=== PATIENT | male | born 1930 | race Caucasian/White ===

== ENCOUNTER → 2017-03-17 | Outpatient (CLI) | payer MEDICARE ==
[~2017-03-17] MED LIST: ADVAIR 500/501 E1 INH; ALLOPURINOL100 MG PO; ASPIRIN81 M1 PO; CALCARB 600 W/V1 TA1 PO; CARDURA4 MG PO; COREG6.25 MG PO; EPA1000 MG PO; GLYBURIDE5 MG PO; HUMULIN N100 U/ML SC; HYDRALAZINE10 MG PO; IMDUR30 MG PO; LASIX40 MG PO; MEDROL DOSEPAK4 MG PO; METFORMIN500 MG PO; PERCOCET 325 MG1 TA2 PO; PLAVIX75 MG PO; POTASSIUM20 MEQ PO; SPIRIVA18 MCG INH; VITAMIN B12 PO
[2017-03-17 14:22] LABS: BASO % 0.3 % (0.0-1.0); EOS # 0.3 10*3/uL (0.0-0.4); EOS % 9.8 % (1.0-4.0); HEMATOCRIT 33.1 % (42.0-52.0); LYMPH % 27.5 % (27.0-41.0); MEAN CELL VOLUME 102.8 fl (80.0-94.0); MEAN CORPUSCULAR HGB 31.1 pg (27.0-31.0); MEAN CORPUSCULAR HGB CONC 30.2 g/dl (33.0-37.0); MEAN PLATELET VOLUME 11.4 fl (9.6-12.3); MONO # 0.3 10*3/uL (0.1-1.0); MONO % 9.8 % (3.0-9.0); NEUT # 1.8 10*3/uL (2.3-7.9); NEUT % 52.3 % (47.0-73.0); PLATELET COUNT AUTOMATED 56 10*3/uL (130-400); RED BLOOD COUNT 3.22 10*6/uL (4.50-5.90); RED CELL DISTRI WIDTH 12.7 % (0-14.5); WHITE BLOOD COUNT 3.5 10*3/uL (4.8-10.8)
[2017-03-17 14:28] LABS: BILIRUBIN NEGATIVE (NEGATIVE); BLOOD TRACE-INTACT (NEGATIVE); CLARITY CLEAR (CLEAR); COLOR YELLOW (YELLOW); GLUCOSE TRACE (NEGATIVE); KETONE NEGATIVE (NEGATIVE); LEUKO ESTERASE NEGATIVE (NEGATIVE); NITRITE NEGATIVE (NEGATIVE); PROTEIN 1+ (NEGATIVE); UROBILINOGEN 0.2 E.U./dl (0.2-1.0)
[2017-03-17 14:37] LABS: URINE TP/CRE RATIO 0.6 (<0.21)
[2017-03-17 14:46] LABS: ALBUMIN 3.8 gm/dl (3.1-4.5); MAGNESIUM 2.3 mg/dL (1.5-2.1); POTASSIUM 4.3 mmol/L (3.5-5.1)
[2017-03-17 16:28] LABS: VITAMIN D, 25-HYDROXY 34.4 ng/mL (30-100)
== END | disposition home or self-care (01) ==
LOC: LAB 13:41
PROVIDERS: Internal Medicine Nephrology
DX: N18.4 Chronic kidney disease, stage 4 (severe) (principal); N25.81 Secondary hyperparathyroidism of renal origin; D63.1 Anemia in chronic kidney disease

== ENCOUNTER 2017-04-05 11:11 | Inpatient (IN) | payer MEDICARE ==
[~2017-04-05] VITALS: Ht 180.3 cm; Wt 87.1 kg
--- NOTE | ~2017-04-05 | PR ---
[place], [place] PROGRESS NOTE NAME: DONA ADLER [facility] #: [id number] UNIT #: [id number] ROOM: 421 DOCTOR: DIOR WALLACE MD BIRTHDATE: [birth year] DOS: 04/13/2017 CARDIOLOGY PROGRESS NOTE SUBJECTIVE: The patient was seen at his bedside today 04/13/2017 for followup of his atherosclerotic heart disease and recent non-ST elevation myocardial infarction. He is an 87-year-old man who has multiple medical problems including chronic systolic heart failure from ischemic cardiomyopathy, hypertension, hyperlipidemia, COPD, hypothyroidism and dementia. He presented to the hospital on this occasion with increased weakness and confusion. Cardiac biomarkers were consistent with a non-ST elevation myocardial infarction, even though the patient had no chest pain. He did show evidence for acute renal injury. Because of his multiple comorbidities and acute renal failure, it was felt that he was best treated medically. He states that his breathing has improved. He denies any chest pain, palpitations, lightheadedness or syncope at this time. He states that he has not been out of bed much, but does well, sitting up. PHYSICAL EXAMINATION: VITAL SIGNS: Today, his pulse is 69 and regular, blood pressure is 112/50. He is afebrile. NECK: Supple. He has no jugular distention. Carotids are full. LUNGS: Respirations are unlabored. Chest is clear to auscultation and percussion. He had no presacral edema. HEART: Had a regular rhythm with a fourth heart sound and a soft third heart sound. The PMI is displaced laterally. ABDOMEN: Soft and normally active. EXTREMITIES: Showed no edema today. LABORATORY DATA: Hemoglobin is 9.1, white count 7400, platelet count 82,000. Sodium 148, potassium 3.7, BUN 48 with creatinine 4.07. IMPRESSION: 1. Non-ST elevation myocardial infarction. 2. Ischemic cardiomyopathy. 3. Acute on chronic systolic congestive heart failure. 4. Essential hypertension, which is currently well controlled. 5. Chronic renal failure with acute exacerbation. 6. Hematuria. 7. Anemia. 8. Dementia. PLAN: The patient is tolerating hydralazine and his blood pressure is now controlled. We will not make any adjustments in his medications today. I agree with withholding his diuretics for a day or two until his renal functions improved, but I think that long-term, he will require loop diuretic therapy on daily or every other day basis. We will continue to follow him with his other physicians and we thank Dr. Bhatia for asking our advice regarding his care. [place], [place] PROGRESS NOTE NAME: DNOA ADLER UNIT #: [id number] ROOM: [facility] DOCTOR: DIOR WALLACE MD BIRTHDATE: [birth year] DIOR WALLACE MD CM:PNTRANS [id number] DIOR WALLACE MD 04/14/17 0538 interface
--- NOTE | ~2017-04-05 | PR ---
[place], [place] PROGRESS NOTE NAME: DONA ADLER UNIT #: [id number] ROOM: 421 DOCTOR: SERGIO PABLO MD BIRTHDATE: [birth year] DOS: 04/11/2017 REASON FOR VISIT: NSTEMI and cardiomyopathy. SUBJECTIVE: The patient is more alert today. Denies any chest pain or shortness of breath. No orthopnea. No fever or chills. REVIEW OF SYSTEMS: The 8 systems negative except as mentioned above. RHYTHM STRIPS: The patient was ventricular pacing. PHYSICAL EXAMINATION: VITAL SIGNS: Blood pressure 149/66, pulse 71, respiratory rate was 14. GENERAL: Alert, comfortable, in no acute distress. HEENT: Pupils round. No jaundice. NECK: Supple. No distended neck veins. No carotid bruit. CHEST: Nontender. LUNGS: A few scattered rhonchi. HEART: Regular rhythm. No S3. Grade 1/6 systolic murmur. EXTREMITIES: Show trace edema. Distal pulses are palpable. SKIN: Warm and dry. NEUROLOGIC: The patient is alert, oriented. No focal neurologic deficit. PSYCHIATRIC: The patient is alert with hard of appearing. MEDICATIONS: Reviewed. IMPRESSION: 1. NSTEMI. 2. Cardiomyopathy. 3. Hypertension. 4. Hematuria, stable. 5. Chronic kidney disease. 6. Anemia. RECOMMENDATIONS: 1. Continue current medications. 2. He denies any chest pain or palpitations. 3. Increase activity as tolerated. 4. Conservative medical therapy due to his multiple comorbid conditions. 5. There is no family at bedside at the time of my examination. [place], [place] PROGRESS NOTE NAME: DONA ADLER UNIT #: [id number] ROOM: 421 DOCTOR: SERGIO PABLO MD BIRTHDATE: [birth year] SERGIO PABLO MD CM:PNTRANS [phone] SERGIO PABLO MD 04/12/17 1102 interface
--- NOTE | ~2017-04-05 | PR ---
[place], [place] PROGRESS NOTE NAME: DONA ADLER UNIT #: [id number] ROOM: 421 DOCTOR: JERI PATE MD BIRTHDATE: [birth year] DOS: SUBJECTIVE: The patient was seen and examined. He is awake and alert. Family is at bedside. He is sitting in a chair, appears very comfortable. He denies current shortness of breath. He denies current nausea. He states appetite is fair. PHYSICAL EXAMINATION: VITAL SIGNS: Temperature 97.6, pulse 62, respirations 18, blood pressure 133/50. HEENT: Shows no JVD. LUNGS: Diminished breath sounds. No wheeze. HEART: Normal S1, S2. No rub. No thrill. No gallop. ABDOMEN: Soft and nontender. There is no organomegaly or rigidity. There is no rebound or guarding. EXTREMITIES: Had 1-2+ edema. SKIN: Showed no overt rash. Venous stasis changes noted. SKIN: Temperature is war, LABORATORY DATA: Glucose 159, BUN 43, creatinine 3.38, sodium 148, potassium 3.7, CO2 of 31, calcium of 8.2. IMPRESSION AND PLAN: 1. Acute on chronic kidney disease. The patient had improvement in his renal function. His true baseline creatinine is not quite clear, but seems to be somewhere in the upper 2s-3 range. His creatinine is nearing baseline. 2. Hypernatremia. This is stable and mild. He is status post 1 liter of D5W. 3. Congestive heart failure. Resume home dose of diuretics at this point. He does appear to be volume overloaded. 4. Anemia. Follow H and H. Consider erythropoietin stimulating agents while in the hospital. 5. Secondary hyperparathyroidism. The patient is on calcitriol. 6. Diabetes. Continue insulin. [place], [place] PROGRESS NOTE NAME: DONA ADLER UNIT #: [id number] ROOM: 421 DOCTOR: JERI PATE MD BIRTHDATE: [birth year] JERI PATE MD CM:PNTRANS [phone] JERI PATE MD 04/17/17 0956 interface
--- NOTE | ~2017-04-05 | PR ---
[place], [place] PROGRESS NOTE NAME: DONA ADLER UNIT #: [id number] ROOM: 421 DOCTOR: ROSEY MONTAÑO MD BIRTHDATE: [birth year] DOS: 04/14/2017 SUBJECTIVE: He has been noted comfortable at this time, resting on his bed. Denies symptoms of chest pain or any abdominal pain. Denies any acute shortness of breath. OBJECTIVE: VITAL SIGNS: Shows normal temperature, respiratory rate 18, heart rate of 64, blood pressure 162/50-139/58. Pulse oxygen saturation on 2 liters nasal cannula 93% saturation. HEENT: Showed no acute change. NECK: Supple. CARDIOVASCULAR: S1, S2 is audible. LUNGS: The patient was noted with [id number]-gu-[id number] decreased breath sounds without wheezing or crackles. ABDOMEN: Soft, nontender. LABORATORY DATA: BMP today BUN 50, creatinine 3.87. BUN yesterday was noted 48, creatinine 4.07. Chest x-ray was done for this patient yesterday, PA and lateral view, and reviewed and noted without any area of consolidation, mild increased interstitial markings, the patient with possible congestive heart failure, small bilateral pleural fluids were noted. IMPRESSION: 1. Resolving acute congestive heart failure, small pleural fluid in the patient. 2. Acute kidney injury also noted with partial improvement from yesterday as well. 3. Overall debility. 4. Acute hypercapnic and hypoxic respiratory failure as well. PLAN OF TREATMENT: No changes in the plan and management at this time will be necessary. Continue the patient's current treatment, therapy as previously. Usual care. Other supportive plan and management. Continue the BiPAP on the patient as tolerated. Continue to monitor kidney functions. Pleural fluid does not require any thoracentesis as they were noted only small in amount. [place], [place] PROGRESS NOTE NAME: DONA ADLER UNIT #: [id number] ROOM: 421 DOCTOR: ROSEY MONTAÑO MD BIRTHDATE: [birth year] ROSEY SULTANA MD CM:PNTRANS [phone] ROSEY PICKARD MD 04/15/17 0007 interface
--- NOTE | ~2017-04-05 | PR ---
[place], [place] PROGRESS NOTE NAME: DONA ADLER [facility] #: [id number] UNIT #: [id number] ROOM: 421 DOCTOR: DIOR WALLACE MD BIRTHDATE: [birth year] DOS: 04/15/2017 SUBJECTIVE: The patient was seen at his bedside today 04/15/17 for followup of his ischemic cardiomyopathy, which we are managing conservatively with medical therapy only. He presented to the hospital on this occasion with a non-ST elevation LA and has done well with medical therapy thus far. Plans are being made for him to transfer to a rehab facility, probably later today or tomorrow. He tells me that he breathes well when sitting upright in the chair and has been ambulatory in his room. He denies any chest pain. PHYSICAL EXAMINATION: VITAL SIGNS: His pulse is 62 and regular, blood pressure is 126/44. He is afebrile. He weighs 87.1 kg with a body mass index of 26.8. HEENT: Normocephalic, atraumatic. Extraocular muscles are intact. Sclerae are clear. NECK: Supple. He has no jugular distention or hepatojugular reflux. Carotids are full. He has no bruits. LUNGS: Respirations are unlabored. He has decreased breath sounds at the base, but no wheezes or rales. There is no presacral edema. HEART: Has a regular rhythm with distant tones. He has a fourth heart sound and a soft third heart sound. The PMI is displaced laterally. ABDOMEN: Soft and normally active without masses, organomegaly, bruits or tenderness. EXTREMITIES: Showed no edema. He does have chronic stasis changes. LABORATORY DATA: Sodium today is 149 with potassium of 3.6, BUN has fallen to 45 and creatinine has fallen to 3.44 from a peak of 4.07. The patient does appear to be doing better from a cardiac standpoint. IMPRESSION: 1. Non-ST segment elevation myocardial infarction. 2. Ischemic cardiomyopathy. 3. Acute on chronic systolic congestive heart failure. 4. Essential hypertension. 5. Chronic renal failure with acute exacerbation. 6. Dementia. PLAN: The patient appears to be on a reasonable medical regimen at this time. We will resume a small dose of oral furosemide. I agree with plans to transfer him to a rehab facility. We would like to see him back in the office in 3-[address] Bhatia for asking our advice regarding his care and will remain available to see him if needed for the remainder of his hospitalization. [place], [place] PROGRESS NOTE NAME: DONA ADLER UNIT #: [id number] ROOM: [facility] DOCTOR: DIOR WALLACE MD BIRTHDATE: [birth year] DIOR WALLACE MD CM:PNTRANS [phone] DIOR WALLACE MD 04/16/17 0317 interface
--- NOTE | ~2017-04-05 | PR ---
[place], [place] PROGRESS NOTE NAME: DONA ADLER UNIT #: [id number] [facility]: [facility] DOCTOR: ROSEY MONTAÑO MD BIRTHDATE: [birth year] DOS: 04/08/2017 SUBJECTIVE: The patient has been noted somewhat lethargic and drowsy this morning. He has been using the oxygen supplementation, BiPAP use was noted limited which has been ordered previously. He has been noted with resolution of the hematuria, which was noted significant yesterday. This morning, the hematuria seemed to be decreased. The diuretic therapy and the medical management was continued. OBJECTIVE: VITAL SIGNS: Shows normal temperature, respiratory rate 20, heart rate 72, blood pressure 146/70. Intake for the patient is 3900 mL, the output 1452 mL. Pulse oxygen saturation on 3 liters nasal cannula 95% saturation. HEENT: Examination shows no acute change. NECK: Supple. CARDIOVASCULAR: S1, S2 audible. LUNGS: Shows crackles in the lungs are still noted bilaterally. ABDOMEN: Soft with moderate obesity. EXTREMITIES: Still shows edema. LABORATORY DATA: The patient's CMP of the patient done this morning, glucose 250, BUN 29, creatinine 2.89, carbon dioxide 37. Urine culture, no bacterial growth. Arterial blood gas obtained today for assessment of change in mental status, pH of 7.24, pCO2 of 85, pO2 of 101 noted on 3 liters nasal cannula supplementation of oxygen. IMPRESSION: 1. The patient with current acute on chronic hypercapnic hypoxic respiratory failure. 2. Non-ST segment elevation myocardial infarction. 3. The patient with metabolic alkalosis. 4. Acute congestive heart failure for the patient systolic dysfunction. 5. Coronary artery disease. 6. Hematuria. PLAN OF TREATMENT: The patient was started on the BiPAP for the patient again settings ordered as 22/08. The oxygen supplementation, maintain 90% greater. The arterial blood gas will be obtained for the patient once on the BiPAP for about 2 hours later on to reassess and make any further adjustments. Other supportive plan and management, other therapy care. Usual medical management. [place], [place] PROGRESS NOTE NAME: DONA ADLER UNIT #: [id number] [facility] DOCTOR: AZIZ ROSEY PICKARD MD BIRTHDATE: [birth year] ROSEY SULTANA MD CM:JOSE J 6 ROSEY PICKARD MD 04/09/179 interface
--- NOTE | ~2017-04-05 | PR ---
[place], [place] PROGRESS NOTE [id number] UN[facility] #: [id number] ROOM: [facility] DOCTOR: ESTEFANY JENKINS MD BIRTHDATE: [birth year] DOS: The patient has been admitted to hospital with acute exacerbation of chronic obstructive pulmonary disease with emphysema with hypoxia with respiratory failure with non-ST elevated myocardial infarction and acute renal failure with chronic renal failure and he is feeling much better today, but he is having some hematuria due to the indwelling catheter, we will remove his Rae catheter to see how he does and his vancomycin level is 13.3, which is normal and comprehensive metabolic profile showed glucose 271, BUN 44, creatinine 2.98, GFR 20, sodium is 147, potassium is normal, CO2 is 38. So he is showing some progress in his renal failure also and his CBC showed white count 4600, hemoglobin 9.6, hematocrit 31.4, and platelet count is 74,000 which are low. OBJECTIVE: VITAL SIGNS: His blood pressure is 139/56, pulse is 62, respirations 18, temperature 97.6, pulse oximeter on 3 liters 98%. HEART: Regular. LUNGS: Showing bilateral wheezing. No increased expiration. No crepitation. ABDOMEN: Soft. ESTEFANY JENKINS MD CM:PNTRANS [id number] ESTEFANY JENKINS MD 04/10/17 1236 interface
--- NOTE | ~2017-04-05 | PR ---
[place], [place] PROGRESS NOTE [id number] UNIT #: [id number] ROOM: 421 DOCTOR: DIOR WALLACE MD BIRTHDATE: [birth year] DOS: 04/14/2017 SUBJECTIVE: The patient was seen today 04/14/2017 with multiple family members at his bedside. He is sitting up in a chair and breathing easily. He and his family both tell me that he has been ambulatory in his room. He has been able to walk to and from the bathroom without lightheadedness or falling. His breathing has improved. He denies any cough or chest pain. PHYSICAL EXAMINATION: VITAL SIGNS: On exam, his pulse is 64 and regular. Blood pressure is 163/50. He is afebrile. NECK: Supple. He has no jugular distention or hepatojugular reflux. Carotids are full. LUNGS: Respirations are unlabored. He has decreased breath sounds at the bases with a few crackles at the bases. There is no presacral edema. HEART: Has a regular rhythm with a fourth heart sound and a soft third heart sound. The PMI is displaced laterally. ABDOMEN: Soft and normally active. EXTREMITIES: Showed no edema. LABORATORY DATA: Sodium is 148, potassium 3.7, BUN 50, creatinine 3.87 which is down from 4.07. IMPRESSION: 1. Fxu-YC-bwyvfezxp myocardial infarction. 2. Ischemic cardiomyopathy. 3. Acute on chronic systolic congestive heart failure. 4. Essential hypertension. 5. Chronic renal failure with acute exacerbation. 6. Dementia. PLAN: We will continue to titrate his hydralazine as tolerated by his blood pressure. Diuretics remain on hold. I think in emt intermediate, he will require at least a low dose of daily loop diuretic therapy. No other invasive or advanced cardiac diagnostics or therapeutics are planned at this time. We thank Dr. Bhatia for asking our advice regarding the patient's care. [place], [place] PROGRESS NOTE NAME: DONA ADELR UNIT #: [id number] ROOM: 421 DOCTOR: DIOR WALLACE MD BIRTHDATE: [birth year] DIOR WALLACE MD CM:PNTRANS [phone] DIOR WALLACE MD 04/14/17 2359 interface
--- NOTE | ~2017-04-05 | PR ---
[place], [place] PROGRESS NOTE [id number] UNIT #: [id number] ROOM: 421 DOCTOR: DRAKE RAMOS MD BIRTHDATE: [birth year] DOS: SUBJECTIVE: An 87-year-old patient who was seen by Dr. Stallworth over the weekend. He was feeling much better today when I saw him at noon. The patient did complain of pain in the right leg. I did order venous Doppler of the lower extremities and I did talk to the nurse taking care of the patient and also with the family in the room. Labs were reviewed and notes from Dr. Stallworth were reviewed over the weekend. The patient is not having hematuria at this point and conservative management is advised. At this point, no more changes in the management were done. PHYSICAL EXAMINATION: CHEST: Clinically decreased breath sounds bilaterally. HEART: S1, S2 regular in rate and rhythm. No murmur, gallop or rub. ABDOMEN: Soft, nontender. EXTREMITIES: Both the lower extremities had edema. NEUROLOGIC: No focal deficits. The patient appeared more alert today. ASSESSMENT: At this time is: 1. NSTEMI. Conservative management advice. The patient continued on Plavix and aspirin. Heparin is on hold. 2. Acute kidney injury. 3. Frequent falls. 4. Bilateral pneumonia for which he is on antibiotic. PLAN OF CARE: We will follow the patient again in the morning. All the consultants' reports were reviewed by me personally in the computer today. CMP, CBC with diff was ordered for tomorrow. DRAKE RAMOS MD CM:PNTRANS [phone] DRAKE RAMOS MD 04/12/17 0951 interface
--- NOTE | ~2017-04-05 | PR ---
[place], [place] PROGRESS NOTE NAME: DONA ADLER [facility] #: [id number] UNIT #: [id number] ROOM: 421 DOCTOR: DIOR WALLACE MD BIRTHDATE: [birth year] DOS: SUBJECTIVE: The patient was seen at his bedside for Cardiology followup today. He is an 87-year-old man with a history of ischemic cardiomyopathy and poor left ventricular systolic function. He presented to the hospital on this occasion with increased weakness and confusion. Cardiac biomarkers were consistent with a non-ST elevation myocardial infarction, even though the patient did not have any chest pain. Because of his multiple comorbidities and acute renal failure, it was felt that he was best treated medically. He does seem to be doing well with that. He denies any chest pain, palpitations, lightheadedness or syncope. He denies orthopnea or PND. He has not been out of bed much and has walked even less, but states that in general, he feels well. PHYSICAL EXAMINATION: VITAL SIGNS: On exam today, his pulse is 63 and regular, blood pressure is 157/57. He is afebrile. He weighs 87.1 kg and has a body mass index 26.8. NECK: Supple. He has no jugular distention. Carotids are full without bruits. He has no neck or supraclavicular masses. LUNGS: Respirations are unlabored. His chest is clear to auscultation and percussion. He has no presacral edema or chest wall tenderness. HEART: Has a regular rhythm. He has a fourth heart sound and a soft third heart sound. The PMI is displaced laterally. ABDOMEN: Soft and normally active. EXTREMITIES: Showed trace edema bilaterally. LABORATORY DATA: Chest x-ray shows that he does have cardiomegaly and vascular congestion. He does have what appears to be a biventricular ICD in place. IMPRESSION: 1. Non-ST elevation myocardial infarction. 2. Ischemic cardiomyopathy. 3. Acute on chronic systolic congestive heart failure. 4. Essential hypertension. 5. Chronic renal insufficiency with acute exacerbation. 6. Hematuria. 7. Anemia. 8. Dementia. PLAN: We will add a small dose of hydralazine to his regimen to help improve left ventricular unloading and decrease his blood pressure. We do not plan on any invasive or advanced cardiac diagnostics or therapeutics because of his multiple comorbidities. We thank Dr. Bhatia for asking our advice regarding the patient's management. [place], [place] PROGRESS NOTE NAME: DONA ADLER UNIT #: [id number] ROOM: 421 DOCTOR: DIOR WALLACE MD BIRTHDATE: [birth year] DIOR WALLACE MD CM:JOSE J 1800 DIOR WALLACE MD 04/13/17 0933 interface
--- NOTE | ~2017-04-05 | PR ---
[place], [place] PROGRESS NOTE NAME[id number] UNIT #: [id number] ROOM: 421 DOCTOR: RD PICKARD MD,ROSEY BIRTHDATE: [birth year] DOS: 04/15/2017 SUBJECTIVE: He has been noted comfortable at this time without any distress. The patient was not reported with any symptoms of chest pain or any abdominal pain at the present time. He has been getting the physical therapy for the patient and ambulating with assistance. OBJECTIVE: VITAL SIGNS: Normal temperature, respiratory rate 18, heart rate 64, blood pressure 136/42. Pulse oxygen saturation of the patient was noted on 2 liters nasal cannula at 94% saturation. HEENT: Showed no new change. NECK: Supple. CARDIOVASCULAR: S1, S2 audible. LUNGS: The patient noted without any wheezing or crackles. ABDOMEN: Soft and nontender. LABORATORY DATA: BMP: BUN 45, creatinine 3.44. IMPRESSION: 1. Acute kidney injury the patient noted at this time with a stable resolving acute congestive heart failure and hypercapnic and hypoxic respiratory failure. 2. Overall debility. PLAN OF TREATMENT: No changes in plan of management at this time. Continue the patient's current therapy, plan of care as previously. Usual care, other supportive plan of management. ROSEY SULTANA MD CM:PNTRANS [phone] ROSEY PICKARD MD 04/16/17 0101 interface
--- NOTE | ~2017-04-05 | PR ---
[place], [place] PROGRESS NOTE NAME[id number] UNIT #: [id number] ROOM: 421 DOCTOR: ROSEY MONTAÑO MD BIRTHDATE: [birth year] DOS: 04/16/2017 PULMONARY FOLLOWUP NOTE SUBJECTIVE: He has been noted comfortable at this time without any distress. He has been getting a physical therapy, eating food. The patient's medications were continued for the patient as previously. OBJECTIVE: VITAL SIGNS: For the patient which has been recorded shows a normal temperature, respiratory rate 18, heart rate 62, blood pressure 132/50. The pulse oxygen saturation of the patient recorded as 95% saturation on 3 liters nasal cannula. HEENT: Examination shows no acute change. NECK: Supple. CARDIOVASCULAR: S1, S2 audible. LUNGS: Noted without any wheeze or crackles at this time. ABDOMEN: Soft, nontender. LABORATORY DATA: The BMP of patient this morning, BUN 43, creatinine was noted as 3.38. Glucose 169. Sodium 148. IMPRESSION: 1. The patient with resolving acute hypercapnic and hypoxic respiratory failure progressively with acute changes for the patient as well. 2. Overall severe debility noted secondary to the above. PLAN OF TREATMENT: Continue current plan of management as in progress without any changes from the pulmonary standpoint. He will be continued on the bronchodilators and the oxygen supplementation. PRN use of the BiPAP for this patient as tolerated since the patient has not been using the BiPAP for the last few days. Other supportive therapy plan and management and care. Usual treatment. [place], [place] PROGRESS NOTE NAME: DONA ADLER UNIT #: [id number] ROOM: 421 DOCTOR: ROSEY MONTAÑO MD BIRTHDATE: [birth year] ROSEY SULTANA MD CM:PNTRANS [phone] ROSEY PICKARD MD 04/17/17 0159 interface
--- NOTE | ~2017-04-05 | PR ---
[place], [place] PROGRESS NOTE NAME: DONA ADLER UNIT #: [id number] ROOM: 421 DOCTOR: ROSEY MONTAÑO MD BIRTHDATE: [birth year] DOS: 04/12/2017 SUBJECTIVE: The patient has been noted comfortable at this time without any distress. He has not reported any further episodes of hematuria. He denies symptoms of chest pain. Still noted edema of the extremities. The patient is much greater in the right upper extremity than other parts of the body. Other edema has been improving progressively. OBJECTIVE: VITAL SIGNS: For the patient which has been recorded showed normal temperature this morning, respiration 16, heart rate 62, blood pressure 150/59. Pulse oxygen saturation of the patient noted on 3 liters nasal cannula 98% saturation. HEENT: Examination shows no acute change. NECK: Supple. CARDIOVASCULAR: S1, S2 audible. LUNGS: Noted without any wheezing. Basilar crackles are present. ABDOMEN: Soft, nontender. LABORATORY DATA: The patient's CMP today, BUN 46, creatinine 3.21. Glucose 126. Sodium 148. Albumin 2.7. CBC this morning: WBC count normal, hemoglobin 9.6, hematocrit 30.8, platelet count 84,000. IMPRESSION: 1. The patient who has been currently noted with resolving acute hypoxic respiratory failure. 2. Acute kidney injury with further elevation of creatinine noted from yesterday. 3. Acute resolution of metabolic alkalosis. 4. The patient with acute hypercapnic and hypoxic respiratory failure, treated with BiPAP. PLAN OF MANAGEMENT: Continuation of the current therapy, plan of care at this time. As in going from the pulmonary standpoint, use BiPAP oxygen supplementation. Monitor kidney function of the patient and Nephrology followup will be continued. [place], [place] PROGRESS NOTE NAME: DONA ADLER UNIT #: [id number] ROOM: 421 DOCTOR: ROSEY MONTAÑO MD BIRTHDATE: [birth year] ROSEY SULTANA MD CM:PNTRANS [phone] ROSEY PICKARD MD 04/12/17 9968 interface
--- NOTE | ~2017-04-05 | PR ---
[place], [place] PROGRESS NOTE NAME: DONA ADLER UNIT #: [id number] ROOM: 421 DOCTOR: ROSEY MONTAÑO MD BIRTHDATE: [birth year] DOS: 04/13/2017 SUBJECTIVE: The patient continues to show gradual reduction and improvement in the respiratory symptoms at the present time. The patient denies any symptoms of chest pain. The shortness of breath is improving. The edema of the extremities is also noted with gradual resolution as well. OBJECTIVE: VITAL SIGNS: For the patient which was recorded showed the temperature of the patient noted as normal. The respiratory rate of the patient recorded as respiratory rate 20, heart rate 63, blood pressure 127/54. Pulse oxygen saturation of the patient noted on nasal cannula supplementation of oxygen patient was noted as oxygen saturation of 98% saturation on 2 L nasal cannula. HEENT: Examination shows no new change. NECK: Supple. CARDIOVASCULAR: S1, S2 audible. LUNGS: Noted without any wheeze or crackles at the present time. LABORATORY DATA: The chest x-ray of the patient that was done this morning shows pleural fluid ____ still noted, small amount, but continued improvement in aeration for this patient noted in the lungs bilaterally. Hematocrit 29.5, platelet count of 82,000. CMP of the patient this morning, BUN 48, creatinine 4.07, glucose 105. IMPRESSION: 1. The patient with resolving congestive heart failure, still noted small pleural effusions. 2. Progressive increase in creatinine noted with recurrence of the acute kidney injury of the patient during this hospitalization. 3. Improving acute hypercapnic and hypoxic respiratory failure. PLAN OF TREATMENT: No changes from the pulmonary standpoint for the patient at this time would be necessary. Assess and management of the acute kidney injury of the patient per Nephrology services. Continue the BiPAP for this patient at nighttime and p.r.n. during the day and bronchodilators. Usual care. [place], [place] PROGRESS NOTE NAME: DONA ADLER UNIT #: [id number] ROOM: 421 DOCTOR: ROSEY MONTAÑO MD BIRTHDATE: [birth year] ROSEY SULTANA MD CM:PNTRANS 18 ROSEY PICKARD MD 04/13/172117 interface
--- NOTE | ~2017-04-05 | PR ---
[place], [place] PROGRESS NOTE NAME: DONA ADLER UNIT #: [id number] ROOM: [facility] DOCTOR: ROSEY MONTAÑO MD BIRTHDATE: [birth year] DOS: 04/09/2017 SUBJECTIVE: The patient has been noted more awake this morning. He has used the BiPAP. The BiPAP for the patient has been changed for this patient yesterday to the highest settings, seemed to be noted improvement in the ventilatory status as well. He has been currently resting comfortably, sitting on the chair, noted much more awake and alert and able to communicate verbally. OBJECTIVE: VITAL SIGNS: Showed normal temperature, respiratory rate 17, heart rate 64, blood pressure 122/55. Intake 1040 mL. The pulse oxygen saturation at 35% oxygen 97% saturation. HEENT: Examination showed no new change. NECK: Supple. CARDIOVASCULAR: S1, S2 audible. LUNGS: Scattered occasional crackles. No wheezing. ABDOMEN: Soft, nontender. LABORATORY DATA: Arterial blood gas this morning, pH of 7.26, pCO2 of 76.6, pO2 of 59.8 for this patient on 3 L nasal canula, most likely venous gas for the patient would be considered. CBC of the patient this morning: WBC count 4.6, hemoglobin 9.6, hematocrit 31.4, platelet count 74,000. CMP of the patient this morning: BUN 44, creatinine 2.98, glucose 271. Carbon dioxide noted at 38. IMPRESSION: 1. The patient with acute on chronic hypercapnic and hypoxic respiratory failure with acute kidney injury, rhabdomyolysis, [id number] elevation myocardial infarction, recurrence of the hematuria noted. Hematuria of the patient improved after discontinuation of the heparin previously. 2. Pancytopenia for this patient as well. PLAN OF TREATMENT: No changes from the Pulmonary standpoint. The patient seemed to be responding to treatment and showing improvement in the respiratory status progressively. Continue to assess and manage the hematuria and other problems and monitoring the pancytopenia. [place], [place] PROGRESS NOTE NAME: DONA ADLER UNIT #: [id number] ROOM: [facility] DOCTOR: ROSEY MONTAÑO MD BIRTHDATE: [birth year] ROSEY SULTANA MD CM:PNTRANS [phone] ROSEY PICKARD MD 04/09/17 1604 interface
--- NOTE | ~2017-04-05 | PR ---
[place], [place] PROGRESS NOTE [id number] UNIT #: [id number] ROOM: [facility]- DOCTOR: ESTEFANY JENKINS MD BIRTHDATE: [birth year] DOS: 04/09/2017 The patient is admitted to ICU. The patient came to the hospital with a history of falling down and possibly losing some consciousness. He is not very clear what happened to him, and he has been diagnosed to be having non-ST elevated myocardial infarction, acute kidney injury on chronic renal failure, rhabdomyolysis, acute respiratory failure with hypercarbia community-acquired pneumonia, foot infection, visual hallucination, congestive heart failure, diabetes mellitus, insulin-dependent, hypertension, hyperlipidemia and BPH. The patient is feeling better today. He is breathing a little better. He denies any chest pain. He denies any pain in his abdomen. No nausea, no vomiting, and he does not have any swelling of the legs and has been seen by Dr. Sanchez and also Dr. Ashkan Bhatia, Dr. Lemus, stationary engineer, and his heart is regular. Lungs are showing few rhonchi. No crepitation. Abdomen is soft. No edema of leg, and his temperature today 97.3 and pulse rate is 67, respirations 14, oxygen is 97% with 2 liters and blood pressure is 123/58. The patient is definitely showing improvement. ESTEFAYN JENKINS MD CM:PNTRANS [phone] ESTEFANY JENKINS MD 04/10/17 0134 interface
--- NOTE | ~2017-04-05 | PR ---
[place], [place] PROGRESS NOTE NAME: [facility]LER [id number] UNIT #: [id number] ROOM: [facility] DOCTOR: SERGIO PABLO MD BIRTHDATE: [birth year] DOS: 04/09/2017 CARDIOLOGY FOLLOWUP VISIT NOTE REASON FOR FOLLOWUP: Type 2 NSTEMI and cardiomyopathy. SUBJECTIVE: The patient is alert, no acute distress, is very hard of hearing. Denies any chest pain or shortness of breath. No dizziness. No orthopnea. REVIEW OF SYSTEMS: Review of the 8 systems negative except as mentioned above. Rhythm strips, the patient was in sinus rhythm with ventricular pacing. PHYSICAL EXAMINATION: VITAL SIGNS: Blood pressure 122/55, pulse 64, respiratory rate 17. GENERAL: Alert, no acute distress. HEENT: Pupils round. No jaundice. The patient is wearing BiPAP. NECK: Supple, no distended neck veins. No carotid bruit. CHEST: Nontender. LUNGS: Few scattered rhonchi. HEART: Regular rhythm, no S3. Grade 1/6 systolic murmur. ABDOMEN: Benign, nontender. Bowel sounds normal. EXTREMITIES: Showed 1+ edema. Distal pulses are fair. SKIN: Warm. No cyanosis. NEUROLOGIC: The patient is alert. No focal neurologic deficits. DIAGNOSTIC TESTS: Rhythm strips and labs reviewed as available. IMPRESSION: 1. Type 2 non-ST elevation myocardial infarction. 2. Hematuria. 3. Cardiomyopathy. 4. Acute renal failure. 5. Thrombocytopenia. 6. Status post pacemaker. RECOMMENDATIONS: 1. Continue current medications. I will hold his antiplatelet therapy today due to his hematuria and thrombocytopenia. 2. Continue rest of the cardiac medications. 3. Just conservative medical therapy from cardiac standpoint due to his multiple comorbid conditions. 4. There is no family at bedside at the time of my examination. [place], [place] PROGRESS NOTE NAME: DONA ADLER [facility] [id number] UNIT #: [id number] ROOM: [facility] DOCTOR: SERGIO PABLO MD BIRTHDATE: [birth year] SERGIO PABLO MD CM:PNTRANS [id number] SERGIO PABLO MD 04/10/1703 interface
--- NOTE | ~2017-04-05 | PR ---
[place], [place] PROGRESS NOTE NAME: DONA ADLER [facility] [id number] UNIT #: [id number] ROOM: [facility] DOCTOR: SERGIO PABLO MD BIRTHDATE: [birth year] DOS: 04/10/2017 CARDIOLOGY FOLLOWUP NOTE REASON FOR VISIT: Cardiomyopathy and CHF. The patient is more alert today. Denies any chest pain. He is very hard of hearing. No PND, no orthopnea. Edema is significantly better. The hematuria is also much better. RHYTHM STRIPS: The patient was ventricular pacing on the monitor. PHYSICAL EXAMINATION: VITAL SIGNS: Blood pressure 150/63, pulse 70, respiratory rate 17. GENERAL: Alert, comfortable, in no acute distress. HEAD AND NECK: Pupils are round and equal. No jaundice. NECK: Supple, no distended neck veins, no carotid bruit. CHEST: Symmetrical. LUNGS: Few scattered rhonchi at the left base. HEART: Regular rhythm, no S3. Grade 1/6 systolic murmur. ABDOMEN: Bowel sounds normal, nontender. EXTREMITIES: Showed 1+ edema. Distal pulses are palpable. SKIN: Warm and dry. No cyanosis, no clubbing. NEUROLOGIC: The patient is alert, oriented. No focal neurologic deficit. RECTAL: Deferred. GENITOURINARY: Deferred. IMPRESSION: 1. Non-ST elevation myocardial infarction, asymptomatic. Conservative medical therapy. Continue his current medications including aspirin and beta blockers, statins. 2. Cardiomyopathy. 3. Hematuria better. 4. Chronic kidney disease. 5. Anemia. 6. Thrombocytopenia. 7. Hypertension. RECOMMENDATIONS: Continue current medication. conservative medical therapy due to multiple comorbid conditions. He can be transferred to step down from ICU. Continue to monitor the blood pressures, renal function, hemoglobin. Above treatment was discussed with the patient's family, daughter who is at bedside. [place], [place] PROGRESS NOTE NAME: DONA ADLER UNIT #: [id number] ROOM: [facility] DOCTOR: SERGIO PABLO MD BIRTHDATE: [birth year] SERGIO PABLO MD CM:PNTRANS [phone] SERGIO PABLO MD 04/11/17 0148 interface
--- NOTE | ~2017-04-05 | PR ---
[place], [place] PROGRESS NOTE NAME: DONA ADLER UNIT #: [id number] ROOM: [facility] DOCTOR: RD PICKARD MD,ROSEY BIRTHDATE: [birth year] DOS: 04/10/2017 PULMONARY PROGRESS NOTE SUBJECTIVE: He has been comfortably resting with reduction of the hematuria. He has not been noted with any symptoms of chest pain. Shortness of breath for the patient has been resolving. There were no symptoms of abdominal pain. OBJECTIVE: VITAL SIGNS: Normal temperature, respirations 18, heart rate 62, blood pressure 152/68-139/58. The pulse oxygen saturation noted on the BiPAP for this patient as 97% saturation. Oxygen supplementation 94% saturation. HEENT: Examination shows no acute change. NECK: Supple. CARDIOVASCULAR SYSTEM: S1, S2 audible. LUNGS: Noted with scattered crackles of the lungs were noted bilaterally. ABDOMEN: Soft, nontender. IMPRESSION: 1. The patient with acute congestive heart failure with acute hypercapnic and hypoxic respiratory failure. 2. Hematuria. 3. Acute kidney injury for the patient as well. 4. Non-ST segment elevation myocardial infarction. PLAN OF TREATMENT: Chest x-ray for the patient was ordered. The labs for the patient which were not done today was ordered as well to assess the CBC and CMP. Other supportive therapy, plan and management. Usual care, other supportive therapy, plan of care and management. ROSEY SULTANA MD CM:PNTRANS [phone] ROSEY PICKARD MD 04/10/17 1950 interface
--- NOTE | ~2017-04-05 | PR ---
[place], [place] PROGRESS NOTE NAME: DONA ADLER UNIT #: [id number] ROOM: 421 DOCTOR: ROSEY MONTAÑO MD BIRTHDATE: [birth year] DOS: 04/11/2017 PULMONARY PROGRESS NOTE SUBJECTIVE: He has been comfortably resting at this time. Rae catheter removed yesterday. The patient has been passing urine intermittently, but does not show any gross hematuria for this patient with visual appearance. Shortness of breath symptoms have been subsiding. He has been using the BiPAP with the oxygen supplementation previously. General weakness and fatigue was still described. OBJECTIVE: VITAL SIGNS: Normal temperature, respiratory rate 14, heart rate 71, blood pressure 149/66. Pulse oxygen saturation of the patient noted as 95% on 3.5 L nasal cannula. HEENT: No new change. NECK: Supple. CARDIOVASCULAR: S1, S2 audible. LUNGS: The patient was noted without any wheezing. Occasional crackles are noted, mostly at the lung bases. ABDOMEN: Soft, nontender. EXTREMITIES: Still show edema. LABORATORY DATA: The CMP for this patient that was done for the patient yesterday as ordered showed BUN 40, creatinine 2.84, glucose 297, sodium 150. CBC of the patient of 04/10, hemoglobin 9.3, hematocrit 31.2, WBC count was normal, platelet count 74,000. Chest x-ray that was done for this patient shows pacemaker noted in place, small pleural fluid with area of atelectasis in patient would be considered in the left lower lobe. Right lung appeared to be clear. IMPRESSION: The patient with: 1. Resolving pleural fluid with small area of atelectasis and pleural fluid. 2. Congestive heart failure. 3. Resolving severe metabolic alkalosis. 4. Anemia with thrombocytopenia as well. 5. Hematuria. 6. Non-ST segment elevation myocardial infarction. PLAN OF TREATMENT: Continue the patient's current therapy, plan of management in progress without any changes. Continue usual medical therapy, plan of care, usual care, other supportive plan of therapy. [place], [place] PROGRESS NOTE NAME: DONA ADLER UNIT #: [id number] ROOM: 421 DOCTOR: ROSEY MONTAÑO MD BIRTHDATE: [birth year] ROSEY SULTANA MD CM:PNTRANS [id number] ROSEY PICKARD MD 04/12/17 0414 interface
--- NOTE | ~2017-04-05 | CON ---
[place], [place] REPORT OF CONSULTATION NAME: DONA ADLER [facility] #: [id number] UNIT #: [id number] ROOM: [facility] DOCTOR: ROSEY MONTAÑO MD BIRTHDATE: [birth year] DOS: 04/06/2017 Consultation was asked for this patient for assessment of symptoms of increased shortness of breath in the patient with respiratory failure. HISTORY OF PRESENT ILLNESS: This is an 87-year-old white male who has been brought to the Emergency Room as the patient reported symptoms of frequent falls at home. He has been noted with symptoms of generalized weakness and fatigue for this patient as well. The fall for this patient has been noted frequently. The patient did fell down in the last 2 days 3 times. With the last fall, the patient has been noted with some superficial tear of the skin. There was no bony injury noted. He was also noted starring as per family members prior to the fall for this patient and confusional status following that. He was noted with symptoms of increased sleepiness as well. He has been admitted to the hospital, currently being managed for this patient for rhabdomyolysis, acute kidney injury for this patient with generalized weakness, respiratory failure, and other problems. REVIEW OF SYSTEMS: CONSTITUTIONAL SYMPTOMS: There were no symptoms of fever or chills described per family members. He has been noted generalized weakness and fatigue. EYES: Denied any burning, redness, tenderness or discharge described. EAR, NOSE, THROAT SYMPTOMS: No sore throat, hoarseness, otalgia, postnasal drainage. CARDIOVASCULAR: Denies anginal pain. Pain of the lower extremities noted with edema of the lower extremities for the patient, which was noted significant per son. GENITOURINARY: Denies dysuria, suprapubic pain or hematuria. GASTROINTESTINAL: Denies symptoms of dysphagia, nausea, vomiting, diarrhea, abdominal pain, hematemesis or melena. SKIN: Recent tear for the patient from the fall for the patient noted. CENTRAL NERVOUS SYSTEM: The patient with generalized weakness and fatigue were noted with the patient at the present time, questionable seizure. The patient with current description may be occurring. PAST MEDICAL HISTORY: The patient was noted with history of: 1. 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 2. BPH. 3. History of dementia. 4. History of gout. 5. Hyperlipidemia. 6. Essential hypertension. 7. Hypothyroidism. 8. Type 2 diabetes mellitus. 9. Chronic respiratory failure, use of oxygen. 10. Major depression. 11. History of congestive heart failure, systolic dysfunction. 12. History of COPD. PAST SURGICAL HISTORY: Noted as: [place], [place] REPORT OF CONSULTATION NAME: DONA ADLER UNIT #: [id number] ROOM: [facility] DOCTOR: ROSEY MONTAÑO MD BIRTHDATE: [birth year] 1. Appendectomy. 2. Cardiac catheterization and coronary artery stent insertion x7. 3. History of AICD insertion. SOCIAL HISTORY: He is , has 5 children. The patient worked a and other job for the patient afterwards. He also worked as a senior grants officer. Tobacco use noted since the patient is 22 years old, 2 pack of cigarettes per day that was discontinued in 2002. FAMILY HISTORY: Father from complication related to cirrhosis. Mother from complications of unknown cancer. HOME MEDICATIONS: Listed as use of allopurinol, aspirin, vitamin D3, Coreg, Plavix, fish oil, Advair, folic acid, Lasix, glyburide, hydralazine, NPH insulin, Imdur, Namenda, metformin, potassium chloride, Spiriva, and vitamin B12. DRUG ALLERGY HISTORY: NOTED ALLERGY TO [employer]UGS PHYSICAL EXAMINATION: GENERAL: This is an 87-year-old male who has been currently resting on his bed. VITAL SIGNS: The patient's height was recorded by the nursing staff at the time of admission is 5 feet 11 inches, weight of 191 pounds, BMI 26.6. Vital signs for the patient, which has been recorded shows normal temperature, respiratory rate 21-22, heart rate of 69. The 125 heart rate was noted at 2000 hours yesterday. The blood pressure ranging between 169/77-130/56. Intake for the patient is 1714 mL, output 850 mL. Pulse oxygen saturation on 5 liters nasal cannula 97% saturation, currently noted at 3 L at 94% saturation. HEENT: Examination shows head was atraumatic. Eyes nonicterus. NECK: Supple. CARDIOVASCULAR: S1, S2 is audible. LUNGS: The patient was noted without any wheezing. Crackles noted in the lungs diffusely for the patient throughout the lungs bilaterally. ABDOMEN: Soft, nontender, bowel sounds present. EXTREMITIES: Shows chronic venous stasis changes and pigmentation in the patient as well as edema of the lower extremities, which is moderate at this time. CENTRAL NERVOUS: Limited examination; however, cranial nerves 2-12 intact. No focal deficits. MUSCULOSKELETAL: No acute deformities. SKIN: This patient was noted with thickening of the skin for the patient's lower extremity. The patient has chronic venous stasis changes without any visible ulcers. LABORATORY DATA: CBC of the patient on 04/05/2017, WBC count 7.4, hemoglobin 10.4, hematocrit 34.4, platelet count 81,000. The lactic acid of the patient noted 531.4. BMP of patient on 04/05/2017 shows BUN 58, creatinine 3.40, glucose 158. CO2 was noted at 50. AST was 88. Troponin noted 3.44, CPK 1997. Lipase was noted as 35. The arterial blood gas of the patient that was done yesterday, pH of 7.37, pCO2 of 78, pO2 65.9. This was done on oxygen of 3 [place], [place] REPORT OF CONSULTATION NAME: DONA ADLER UNIT #: [id number] ROOM: [facility] DOCTOR: RD PICKARD MD,[facility] BIRTHDATE: [birth year] liters nasal cannula. CK-MB and troponin of the patient repeated shows a troponin 3.10, CPK 1957, and CK-MB of 10.7. PTT patient yesterday was noted as 30.0. It is noted 38 early this morning. CBC of the patient that was done for the patient on 04/06/2017 shows hemoglobin 9.2, hematocrit 30.3, WBC count was normal. Platelet count 85,000. The INR noted 1.0 this morning. BMP this morning, BUN 61, creatinine 3.46. Carbon dioxide 47, chloride 97, potassium of 3.3. TSH was normal. The echocardiogram that was done for the patient this morning was reported as a finding of left ventricular ejection fraction was noted as 30%. There was no pericardial effusion. Concentric LVH was noted. Right ventricle function was described to be normal. Possibility of a patent foramen ovale for the patient was also noted. Mild mitral stenosis was also described. Radiology assessment, which was done in the Emergency Room, a CT scan of the cervical spine for the patient was noted without any cervical fracture. Degenerative changes in the patient was noted in the cervical spine. Partially visualized left mastoid middle ear for the patient described effusion seen in the possibility of trauma or mastoiditis. CT scan of the head in the patient described no acute intracranial pathologies. Diffuse cortical volume loss in the patient was also noted. CT scan of the chest, abdomen, and pelvis, which was done for this patient, which was reviewed. The CT scan of the chest portion for the patient's lower portion showed evidence of consolidation, infiltration with air bronchogram noted in the right lower lobe. A 1.9-cm reticular nodule opacity was noted in the left upper lung, which was not visible at the previous study for this patient as well. Changes of centrilobular emphysema were also present. The mediastinal images for this patient, which were done without contrast limiting the assessment of any lymph nodes or other structures more accurately. IMPRESSION: 1. The patient who has been currently admitted to the hospital noted with history of chronic hypercapnic and hypoxic respiratory failure with the recurrent falls with non-ST segment elevation myocardial infarction. 2. Possibility of superimposed acute kidney injury for the patient with chronic renal disease with superimposed rhabdomyolysis would be considered. 3. The patient with a 1.9-cm nodular opacity, which was noted in the left upper lung for this patient to be further assessed for this patient as an outpatient with a PET scan for the patient to rule out any malignancy. 4. Acute right lower lobe pneumonia in the patient most likely related to the acute aspiration pneumonia considered versus pulmonary contusion. 5. Severe cardiomyopathy was noted. The patient's left ventricular ejection 30% for the patient's current admission. 6. Possibility of patent foramen ovale for this patient was also described in the echocardiogram. 7. Therapeutic PTT was noted at the present time. The heparin has been adjusted by the Cardiology Service for the non-ST segment elevation myocardial infarction management. 8. Severe metabolic alkalosis secondary to most likely volume depletion and chronic hypercarbia for this patient was also noted. [place], [place] REPORT OF CONSULTATION NAME: DONA ADLER UNIT #: [id number] ROOM: [facility] DOCTOR: CHEO MONTAÑO MDM BIRTHDATE: [birth year] PLAN OF TREATMENT: Continue current treatment for the patient with oxygen supplementation. The BiPAP was ordered for the medical hypercapnia for this patient as well. Severe metabolic alkalosis. The patient will be managed with the patient with the use of the Diamox. Monitor kidney functions. Hyperkalemia, which was noted to be supplemented for this patient intravenously. Antibiotics, the patient's Bactrim could be reduced due to simple community-acquired aspiration with the use of Rocephin and possibly use of Zithromax. Other supportive therapy, plan of management. Usual care. Monitor BMP for this patient closely. Nephrology consultation for the patient is already being continued for this patient for outpatient followup. Venous duplex of the lower extremity has been done for this patient that has excluded any deep venous thrombosis. Acute congestive heart failure, systolic dysfunction, has been managed for the patient with diuretic therapy. Continue close Cardiology monitoring for this patient and management for patient for the current ongoing acute cardiac problems. BiPAP could be used at nighttime and p.r.n. during the daytime. Other supportive therapy, plan of management. Usual care. Thanks for allowing me to participate in the care of this patient . ROSEY SULTANA MD CM:CONSTR:REPORT OF CONSULTATION [id number] 04/07/17 0330 interface
--- NOTE | ~2017-04-05 | PR ---
[place], [place] PROGRESS NOTE NAME: DONA ADLER [facility] #: [id number] UNIT #: [id number] ROOM: [facility] DOCTOR: RD PICKARD MD,ROSEY BIRTHDATE: [birth year] DOS: 04/07/2017 PULMONARY FOLLOWUP NOTE SUBJECTIVE: He has been showing improvement in the respiratory status with a reduction in symptoms of shortness of breath. He was noted fully awake and alert this morning at the time of the assessment. Denies symptoms of chest pain. He has noted progressive increase of the hematuria. He was noted with gross hematuria this morning from tea-colored urine from last night. He has been planned for transfer to [facility]. The patient has used the BiPAP as ordered for several hours at nighttime. This morning, using the oxygen supplementation with nasal cannula. OBJECTIVE: VITAL SIGNS: Showed normal temperature, respiratory rate 20, heart rate 68. Blood pressure 120/55. The pulse oxygen saturation of the patient was noted as 98% on 3 liters nasal cannula. HEENT: Showed no acute change. NECK: Supple. CARDIOVASCULAR: S1, S2 is audible. LUNGS: The patient was noted without any wheezing. The crackles were still noted in the lungs, which have been noted decreased from the previous examination. LABORATORY DATA: This morning, renal panel for the patient that was done today shows BUN of 55, creatinine 3.19. Carbon dioxide 42. Sodium of 148. CBC of the patient, hemoglobin 7.9, hematocrit 26.7, WBC count normal, platelet count was 78,000. Blood culture for this patient was noted as normal. The urine culture of the patient noted with light growth of gram-negative bacilli. IMPRESSION: 1. The patient who has been currently noted with hematuria with resolving acute respiratory failure for this patient. 2. Chronic hypercapnia. 3. Severe metabolic alkalosis. 4. Acute kidney injury. 5. Hyperglycemia noted today, has already been managed effectively. 6. Electrolyte imbalance. 7. Anemia. 8. Non-ST segment elevation myocardial infarction. PLAN OF TREATMENT: Agree for transfer of the patient to another facility for the further assessment of hematuria, also more complex problem because of his non-ST segment elevation myocardial infarction, hematuria, because of the requirement of use of the anticoagulation. Other supportive therapy, plan and management continued. Usual care. All other supportive therapy, plan of care. Usual treatment and other therapies. [place], [place] PROGRESS NOTE NAME: DONA ADLER UNIT #: [id number] ROOM: [facility] DOCTOR: ROSEY MONTAÑO MD BIRTHDATE: [birth year] ROSEY SULTANA MD CM:JOSE J [id number] ROSEY PICKARD MD 04/07/17 2312 interface
[2017-04-05 11:32] VITALS: BP 169/77
[2017-04-05 12:24] LABS: BASO % 0.4 % (0.0-1.0); EOS # 0.3 10*3/uL (0.0-0.4); EOS % 4.5 % (1.0-4.0); HEMATOCRIT 34.4 % (42.0-52.0); HEMOGLOBIN 10.4 g/dl (14.0-18.0); LYMPH % 13.8 % (27.0-41.0); MEAN CORPUSCULAR HGB 31.1 pg (27.0-31.0); MEAN CORPUSCULAR HGB CONC 30.2 g/dl (33.0-37.0); MEAN PLATELET VOLUME 11.9 fl (9.6-12.3); MONO # 0.8 10*3/uL (0.1-1.0); MONO % 11.1 % (3.0-9.0); NEUT # 5.2 10*3/uL (2.3-7.9); NEUT % 69.8 % (47.0-73.0); PLATELET COUNT AUTOMATED 81 10*3/uL (130-400); RED BLOOD COUNT 3.34 10*6/uL (4.50-5.90); RED CELL DISTRI WIDTH 12.5 % (0-14.5); WHITE BLOOD COUNT 7.4 10*3/uL (4.8-10.8)
[2017-04-05 12:47] LABS: ALBUMIN 3.5 gm/dl (3.1-4.5); BILIRUBIN, DIRECT 0.2 mg/dL (0.0-0.2); BILIRUBIN, TOTAL 0.5 mg/dl (0.2-1.0); POTASSIUM 3.6 mmol/L (3.5-5.1); TOTAL PROTEIN 7.1 gm/dL (6.4-8.2)
[2017-04-05 12:53] LABS: TROPONIN I 3.44 ng/ml (<0.045)
[2017-04-05 14:08] LABS: BILIRUBIN NEGATIVE (NEGATIVE); BLOOD 3+ (NEGATIVE); CLARITY SL CLOUDY (CLEAR); COLOR YELLOW (YELLOW); GLUCOSE NEGATIVE (NEGATIVE); KETONE NEGATIVE (NEGATIVE); LEUKO ESTERASE NEGATIVE (NEGATIVE); NITRITE NEGATIVE (NEGATIVE); PROTEIN 2+ (NEGATIVE); UROBILINOGEN 0.2 E.U./dl (0.2-1.0)
[2017-04-05 14:15] LABS: BACTERIA TRACE; RBC TNTC rbc/hpf (0-2)
[2017-04-05 14:16] LABS: URINE REFLEX COMMENT YES (NO)
[2017-04-05] MEDS ORDERED: NATURE'S BLEND F1 MG PO (14:48)
[2017-04-05] MEDS ORDERED: NAMENDA10 MG PO (14:49)
[2017-04-05] MEDS ORDERED: CITALOPRAM10 MG PO (14:51)
[2017-04-05] MEDS ORDERED: FLOMAX0.4 MG PO (14:52)
[2017-04-05] MEDS ORDERED: SIMVASTATIN20 MG PO (14:54)
[2017-04-05] MEDS ORDERED: ROCALTROL0.25 MC2 PO (15:05)
[2017-04-05] MEDS ORDERED: LEVOTHYROXIN0.025 MG PO (15:06)
[2017-04-05] MEDS ORDERED: SYMBICORT1 AE1 INH (15:07)
[2017-04-05] MEDS ORDERED: FERROUS SULFAT324 M2 PO (15:09)
[2017-04-05] MEDS ORDERED: NORCO 5-325 TA1 EACH PO (15:10)
[2017-04-05] MEDS ORDERED: SOMA350 MG PO (15:11)
[2017-04-05] MEDS ORDERED: PROAIR HFA8.5 GM INH (15:11)
[2017-04-05] MEDS ORDERED: COZAAR50 M1 PO (15:16)
[2017-04-05] MEDS ORDERED: LANTUS100 U/ML SC (15:17)
[2017-04-05 15:20] VITALS: BP 137/63
[2017-04-05 15:28] VITALS: BP 165/80
[2017-04-05] MEDS ORDERED: LASIX40 MG PO (15:42)
[2017-04-05 16:30] LABS: ABG BASE EXCESS 17.2 mmol/L (-2.0-2.0); ABG CO2 CONTENT 47.6 mmol/L (23-27); ABG HCO3 45.2 mmol/l (22-26); ARTERIAL BLOOD GAS PH 7.379 (7.35-7.45); ARTERIAL BLOOD GAS PO2 65.9 mmHg (80-90)
[2017-04-05 18:42] LABS: CKMB 10.7 ng/ml (0.5-3.6); TROPONIN I 3.14 ng/ml (<0.045)
[2017-04-05 20:00] VITALS: BP 111/54
[2017-04-06] VITALS: BP 120/54
[2017-04-06 00:33] LABS: CKMB 5.4 ng/ml (0.5-3.6); TROPONIN I 2.4 ng/ml (<0.045)
[2017-04-06 04:00] VITALS: BP 130/56
[2017-04-06 05:34] LABS: CKMB 4.1 ng/ml (0.5-3.6)
[2017-04-06 05:45] LABS: TROPONIN I 2.36 ng/ml (<0.045)
[2017-04-06 05:49] LABS: FREE T4 0.93 ng/dl (0.76-1.46); MAGNESIUM 2.5 mg/dL (1.5-2.1); POTASSIUM 3.3 mmol/L (3.5-5.1)
[2017-04-06 05:56] LABS: THYROID STIM HORMONE (HS) 1.04 uIU/ml (0.358-4.75)
[2017-04-06 06:12] LABS: BASO % 0.4 % (0.0-1.0); EOS # 0.7 10*3/uL (0.0-0.4); EOS % 9.2 % (1.0-4.0); HEMATOCRIT 30.3 % (42.0-52.0); HEMOGLOBIN 9.2 g/dl (14.0-18.0); MEAN CELL VOLUME 103.4 fl (80.0-94.0); MEAN CORPUSCULAR HGB 31.4 pg (27.0-31.0); MEAN CORPUSCULAR HGB CONC 30.4 g/dl (33.0-37.0); MEAN PLATELET VOLUME 11.9 fl (9.6-12.3); MONO # 0.6 10*3/uL (0.1-1.0); MONO % 8.8 % (3.0-9.0); NEUT # 4.9 10*3/uL (2.3-7.9); NEUT % 67.2 % (47.0-73.0); PLATELET COUNT AUTOMATED 85 10*3/uL (130-400); RED BLOOD COUNT 2.93 10*6/uL (4.50-5.90); RED CELL DISTRI WIDTH 12.5 % (0-14.5); WHITE BLOOD COUNT 7.3 10*3/uL (4.8-10.8)
[2017-04-06 06:25] LABS: FOLIC ACID 23.11 ng/mL (>5.38)
[2017-04-06 06:32] LABS: PROTHROMBIN TIME 10.7 SECONDS (9.0-12.4)
[2017-04-06 12:00] VITALS: BP 145/60
[2017-04-06 12:18] LABS: BILIRUBIN NEGATIVE (NEGATIVE); BLOOD 3+ (NEGATIVE); CLARITY CLOUDY (CLEAR); COLOR BROWN (YELLOW); GLUCOSE NEGATIVE (NEGATIVE); KETONE NEGATIVE (NEGATIVE); LEUKO ESTERASE 1+ (NEGATIVE); NITRITE NEGATIVE (NEGATIVE); PH 5.5 (5.0-9.0); PROTEIN 2+ (NEGATIVE)
[2017-04-06 13:39] LABS: RBC TNTC rbc/hpf (0-2); RED BLOOD CELL CAST 20-30; URINE REFLEX COMMENT YES (NO)
[2017-04-06 13:42] LABS: BACTERIA 2+; WBC 41-50 wbc/hpf (0-5)
[2017-04-06 16:00] VITALS: BP 121/52
[2017-04-06 20:00] VITALS: BP 116/53
[2017-04-07] VITALS (16 sets, daily range): BP systolic 105–142; BP diastolic 46–72
[2017-04-07 05:45] LABS: ALBUMIN 2.6 gm/dl (3.1-4.5); MAGNESIUM 2.4 mg/dL (1.5-2.1); PHOSPHOROUS 3.5 mg/dL (2.5-4.9)
[2017-04-07 06:11] LABS: BASO % 0.4 % (0.0-1.0); EOS # 0.6 10*3/uL (0.0-0.4); EOS % 10.7 % (1.0-4.0); HEMATOCRIT 26.7 % (42.0-52.0); HEMOGLOBIN 7.9 g/dl (14.0-18.0); LYMPH % 18.4 % (27.0-41.0); MEAN CELL VOLUME 104.7 fl (80.0-94.0); MEAN CORPUSCULAR HGB CONC 29.6 g/dl (33.0-37.0); MEAN PLATELET VOLUME 12.3 fl (9.6-12.3); MONO # 0.5 10*3/uL (0.1-1.0); MONO % 8.8 % (3.0-9.0); NEUT # 3.3 10*3/uL (2.3-7.9); NEUT % 61.3 % (47.0-73.0); PLATELET COUNT AUTOMATED 78 10*3/uL (130-400); RED BLOOD COUNT 2.55 10*6/uL (4.50-5.90); RED CELL DISTRI WIDTH 12.9 % (0-14.5); WHITE BLOOD COUNT 5.3 10*3/uL (4.8-10.8)
[2017-04-07 17:14] LABS: BASO % 0.3 % (0.0-1.0); EOS # 0.7 10*3/uL (0.0-0.4); EOS % 11.5 % (1.0-4.0); HEMATOCRIT 32.2 % (42.0-52.0); HEMOGLOBIN 9.7 g/dl (14.0-18.0); IG # 0.1 10*3/uL (0.0-0.1); LYMPH # 0.6 10*3/uL (1.3-4.4); LYMPH % 10.8 % (27.0-41.0); MEAN CELL VOLUME 99.1 fl (80.0-94.0); MEAN CORPUSCULAR HGB 29.8 pg (27.0-31.0); MEAN CORPUSCULAR HGB CONC 30.1 g/dl (33.0-37.0); MEAN PLATELET VOLUME 11.4 fl (9.6-12.3); MONO # 0.4 10*3/uL (0.1-1.0); MONO % 7.2 % (3.0-9.0); NEUT # 3.9 10*3/uL (2.3-7.9); NEUT % 68.3 % (47.0-73.0); PLATELET COUNT AUTOMATED 73 10*3/uL (130-400); RED BLOOD COUNT 3.25 10*6/uL (4.50-5.90); RED CELL DISTRI WIDTH 16.9 % (0-14.5); WHITE BLOOD COUNT 5.7 10*3/uL (4.8-10.8)
[2017-04-08] VITALS: BP 158/71
[2017-04-08 04:00] VITALS: BP 144/68
[2017-04-08 05:55] LABS: ALBUMIN 2.6 gm/dl (3.1-4.5); BILIRUBIN, TOTAL 0.5 mg/dl (0.2-1.0); MAGNESIUM 2.2 mg/dL (1.5-2.1); PHOSPHOROUS 3.7 mg/dL (2.5-4.9); POTASSIUM 4.1 mmol/L (3.5-5.1); TOTAL PROTEIN 5.8 gm/dL (6.4-8.2)
[2017-04-08 08:00] VITALS: BP 146/70
[2017-04-08] MEDS ORDERED: COREG12.5 M1 PO (08:22)
[2017-04-08] MEDS ORDERED: POTASSIUM CHLO10 ME4 PO (08:24)
[2017-04-08 09:15] LABS: ABG BASE EXCESS 6.5 mmol/L (-2.0-2.0); ABG CO2 CONTENT 38.2 mmol/L (23-27); ABG HCO3 35.5 mmol/l (22-26); ABG TEMPERATURE 97.9 F (98.0-99.0); ARTERIAL BLOOD GAS PH 7.242 (7.35-7.45)
[2017-04-08 11:57] LABS: ABG BASE EXCESS 6.1 mmol/L (-2.0-2.0); ABG CO2 CONTENT 37.8 mmol/L (23-27); ABG HCO3 35.2 mmol/l (22-26); ABG TEMPERATURE 97.7 F (98.0-99.0); ARTERIAL BLOOD GAS PH 7.247 (7.35-7.45); ARTERIAL BLOOD GAS PO2 99.8 mmHg (80-90)
[2017-04-08 12:00] VITALS: BP 140/70
[2017-04-08 16:00] VITALS: BP 150/63
[2017-04-08 16:25] LABS: ABG BASE EXCESS 7.3 mmol/L (-2.0-2.0); ABG CO2 CONTENT 38.3 mmol/L (23-27); ABG HCO3 35.8 mmol/l (22-26); ABG TEMPERATURE 97.6 F (98.0-99.0); ARTERIAL BLOOD GAS PH 7.279 (7.35-7.45)
[2017-04-08 20:00] VITALS: BP 154/72
[2017-04-09] VITALS: BP 137/69
[2017-04-09 04:00] VITALS: BP 123/58
[2017-04-09 05:39] LABS: ABG BASE EXCESS 5.5 mmol/L (-2.0-2.0); ABG CO2 CONTENT 36.5 mmol/L (23-27); ABG TEMPERATURE 97.1 F (98.0-99.0); ARTERIAL BLOOD GAS PH 7.264 (7.35-7.45); ARTERIAL BLOOD GAS PO2 59.8 mmHg (80-90)
[2017-04-09 05:49] LABS: BASO % 0.7 % (0.0-1.0); EOS # 0.6 10*3/uL (0.0-0.4); EOS % 12.8 % (1.0-4.0); HEMATOCRIT 31.4 % (42.0-52.0); HEMOGLOBIN 9.6 g/dl (14.0-18.0); IG # 0.1 10*3/uL (0.0-0.1); LYMPH # 0.7 10*3/uL (1.3-4.4); LYMPH % 16.1 % (27.0-41.0); MEAN CELL VOLUME 100.6 fl (80.0-94.0); MEAN CORPUSCULAR HGB 30.8 pg (27.0-31.0); MEAN CORPUSCULAR HGB CONC 30.6 g/dl (33.0-37.0); MEAN PLATELET VOLUME 11.7 fl (9.6-12.3); MONO # 0.4 10*3/uL (0.1-1.0); MONO % 8.2 % (3.0-9.0); NEUT # 2.8 10*3/uL (2.3-7.9); PLATELET COUNT AUTOMATED 74 10*3/uL (130-400); RED BLOOD COUNT 3.12 10*6/uL (4.50-5.90); RED CELL DISTRI WIDTH 15.7 % (0-14.5); WHITE BLOOD COUNT 4.6 10*3/uL (4.8-10.8)
[2017-04-09 06:01] LABS: ALBUMIN 2.7 gm/dl (3.1-4.5); BILIRUBIN, TOTAL 0.4 mg/dl (0.2-1.0); MAGNESIUM 2.4 mg/dL (1.5-2.1); PHOSPHOROUS 3.7 mg/dL (2.5-4.9); POTASSIUM 4.2 mmol/L (3.5-5.1); TOTAL PROTEIN 5.9 gm/dL (6.4-8.2)
[2017-04-09 08:00] VITALS: BP 136/60
[2017-04-09 12:00] VITALS: BP 122/55
[2017-04-09 16:00] VITALS: BP 137/62
[2017-04-09 20:00] VITALS: BP 124/62
[2017-04-10] VITALS: BP 139/56
[2017-04-10 04:00] VITALS: BP 152/68
[2017-04-10 11:55] LABS: BASO % 0.5 % (0.0-1.0); EOS # 0.6 10*3/uL (0.0-0.4); EOS % 9.7 % (1.0-4.0); HEMATOCRIT 31.2 % (42.0-52.0); HEMOGLOBIN 9.3 g/dl (14.0-18.0); IG # 0.1 10*3/uL (0.0-0.1); LYMPH # 0.9 10*3/uL (1.3-4.4); LYMPH % 14.8 % (27.0-41.0); MEAN CELL VOLUME 100.6 fl (80.0-94.0); MEAN CORPUSCULAR HGB CONC 29.8 g/dl (33.0-37.0); MEAN PLATELET VOLUME 11.8 fl (9.6-12.3); MONO # 0.4 10*3/uL (0.1-1.0); MONO % 6.4 % (3.0-9.0); NEUT # 3.9 10*3/uL (2.3-7.9); NEUT % 66.7 % (47.0-73.0); PLATELET COUNT AUTOMATED 74 10*3/uL (130-400); WHITE BLOOD COUNT 5.8 10*3/uL (4.8-10.8)
[2017-04-10 12:00] VITALS: BP 150/63
[2017-04-10 12:09] LABS: ALBUMIN 2.5 gm/dl (3.1-4.5); BILIRUBIN, TOTAL 0.3 mg/dl (0.2-1.0); POTASSIUM 4.1 mmol/L (3.5-5.1); TOTAL PROTEIN 5.6 gm/dL (6.4-8.2)
[2017-04-10 15:55] VITALS: BP 140/54
[2017-04-10 20:00] VITALS: BP 140/62
[2017-04-11] VITALS: BP 144/66
[2017-04-11 04:00] VITALS: BP 159/77
[2017-04-11 08:00] VITALS: BP 149/66
[2017-04-11 12:00] VITALS: BP 140/64
[2017-04-11 16:00] VITALS: BP 133/56
[2017-04-11 20:00] VITALS: BP 131/56
[2017-04-12] VITALS: BP 121/53; BP 148/60
[2017-04-12 06:51] LABS: BASO % 0.4 % (0.0-1.0); EOS # 0.6 10*3/uL (0.0-0.4); EOS % 7.2 % (1.0-4.0); HEMATOCRIT 30.8 % (42.0-52.0); HEMOGLOBIN 9.6 g/dl (14.0-18.0); IG # 0.1 10*3/uL (0.0-0.1); LYMPH % 13.4 % (27.0-41.0); MEAN CORPUSCULAR HGB 30.1 pg (27.0-31.0); MEAN CORPUSCULAR HGB CONC 31.2 g/dl (33.0-37.0); MEAN PLATELET VOLUME 11.6 fl (9.6-12.3); MONO # 0.6 10*3/uL (0.1-1.0); MONO % 7.3 % (3.0-9.0); NEUT # 5.4 10*3/uL (2.3-7.9); NEUT % 70.7 % (47.0-73.0); PLATELET COUNT AUTOMATED 84 10*3/uL (130-400); RED BLOOD COUNT 3.19 10*6/uL (4.50-5.90); RED CELL DISTRI WIDTH 14.7 % (0-14.5); WHITE BLOOD COUNT 7.7 10*3/uL (4.8-10.8)
[2017-04-12 06:54] LABS: MEAN CELL VOLUME 96.6 fl (80.0-94.0)
[2017-04-12 07:29] LABS: ALBUMIN 2.7 gm/dl (3.1-4.5); POTASSIUM 3.9 mmol/L (3.5-5.1)
[2017-04-12 07:35] LABS: BILIRUBIN, TOTAL 0.4 mg/dl (0.2-1.0)
[2017-04-12 08:00] VITALS: BP 158/59
[2017-04-12 12:00] VITALS: BP 170/50
[2017-04-12 15:59] VITALS: BP 122/58
[2017-04-12 16:00] VITALS: BP 157/57
[2017-04-12 20:00] VITALS: BP 160/70
[2017-04-13] VITALS (7 sets, daily range): BP systolic 112–152; BP diastolic 50–70
[2017-04-13 06:16] LABS: BASO % 0.3 % (0.0-1.0); EOS # 0.5 10*3/uL (0.0-0.4); EOS % 6.5 % (1.0-4.0); HEMATOCRIT 29.5 % (42.0-52.0); HEMOGLOBIN 9.1 g/dl (14.0-18.0); IG # 0.1 10*3/uL (0.0-0.1); LYMPH # 0.9 10*3/uL (1.3-4.4); LYMPH % 12.8 % (27.0-41.0); MEAN CELL VOLUME 97.7 fl (80.0-94.0); MEAN CORPUSCULAR HGB 30.1 pg (27.0-31.0); MEAN CORPUSCULAR HGB CONC 30.8 g/dl (33.0-37.0); MEAN PLATELET VOLUME 12.1 fl (9.6-12.3); MONO # 0.5 10*3/uL (0.1-1.0); MONO % 6.9 % (3.0-9.0); NEUT # 5.3 10*3/uL (2.3-7.9); NEUT % 72.7 % (47.0-73.0); PLATELET COUNT AUTOMATED 82 10*3/uL (130-400); RED BLOOD COUNT 3.02 10*6/uL (4.50-5.90); RED CELL DISTRI WIDTH 14.5 % (0-14.5); WHITE BLOOD COUNT 7.4 10*3/uL (4.8-10.8)
[2017-04-13 06:43] LABS: ALBUMIN 2.6 gm/dl (3.1-4.5); POTASSIUM 3.7 mmol/L (3.5-5.1)
[2017-04-13 06:46] LABS: BILIRUBIN, TOTAL 0.4 mg/dl (0.2-1.0); TOTAL PROTEIN 5.8 gm/dL (6.4-8.2)
[2017-04-14] VITALS: BP 139/566
[2017-04-14 06:26] LABS: POTASSIUM 3.7 mmol/L (3.5-5.1)
[2017-04-14 08:00] VITALS: BP 134/64; BP 163/50
[2017-04-14 12:00] VITALS: BP 132/52
[2017-04-14 16:00] VITALS: BP 121/43
[2017-04-14 20:00] VITALS: BP 138/46
[2017-04-15] VITALS: BP 124/50
[2017-04-15 06:57] LABS: POTASSIUM 3.6 mmol/L (3.5-5.1)
[2017-04-15 08:00] VITALS: BP 136/42
[2017-04-15 12:00] VITALS: BP 126/44
[2017-04-15 16:00] VITALS: BP 118/52
[2017-04-15 20:00] VITALS: BP 125/51
[2017-04-16] VITALS: BP 127/51
[2017-04-16 06:10] LABS: POTASSIUM 3.7 mmol/L (3.5-5.1)
[2017-04-16 08:00] VITALS: BP 116/50
[2017-04-16 12:00] VITALS: BP 133/50
[2017-04-16 16:00] VITALS: BP 126/53
[2017-04-16] MEDS ORDERED: FUROSEMIDE40 MG PO (19:32)
[2017-04-16 20:00] VITALS: BP 120/46
== END 2017-04-16 21:35 | disposition other institution (70) | DRG 177 ==
LOC: ED 11:11 → ICCU 13:48 → 4E 13:48 → EDHOLD 13:48 → ICCU 14:22 → 4E 04-11 18:53
PROVIDERS: Emergency Medicine; Internal Medicine; Internal Medicine Critical Care Medicine; Internal Medicine Nephrology; Student in an Organized Health Care Education/Training Program
PROC: 02HV33Z Insertion of Infusion Device into Superior Vena Cava, Percutaneous Approach (ICD-10-PCS; principal; 2017-04-05)
PROC: 5A09357 Assistance with Respiratory Ventilation, Less than 24 Consecutive Hours, Continuous Positive Airway Pressure (ICD-10-PCS; principal; 2017-04-05)
PROC: 30233N1 Transfusion of Nonautologous Red Blood Cells into Peripheral Vein, Percutaneous Approach (ICD-10-PCS; principal; 2017-04-05)
DX: J69.0 Pneumonitis due to inhalation of food and vomit (principal); I21.4 Non-ST elevation (NSTEMI) myocardial infarction; I50.23 Acute on chronic systolic (congestive) heart failure; N18.4 Chronic kidney disease, stage 4 (severe); J96.02 Acute respiratory failure with hypercapnia; J96.01 Acute respiratory failure with hypoxia; N17.9 Acute kidney failure, unspecified; E87.0 Hyperosmolality and hypernatremia; D69.6 Thrombocytopenia, unspecified; E87.3 Alkalosis; D61.818 Other pancytopenia; I13.0 Hypertensive heart and chronic kidney disease with heart failure and stage 1 through stage 4 chronic kidney disease, or unspecified chronic kidney disease; F33.9 Major depressive disorder, recurrent, unspecified; N39.0 Urinary tract infection, site not specified; Z66 Do not resuscitate; T79.6XXA Traumatic ischemia of muscle, initial encounter; L08.9 Local infection of the skin and subcutaneous tissue, unspecified; E11.22 Type 2 diabetes mellitus with diabetic chronic kidney disease; E78.5 Hyperlipidemia, unspecified; N40.0 Benign prostatic hyperplasia without lower urinary tract symptoms; J43.9 Emphysema, unspecified; M10.9 Gout, unspecified; F03.90 Unspecified dementia, unspecified severity, without behavioral disturbance, psychotic disturbance, mood disturbance, and anxiety; E03.9 Hypothyroidism, unspecified; E83.41 Hypermagnesemia; E87.6 Hypokalemia; W19.XXXA Unspecified fall, initial encounter; E11.65 Type 2 diabetes mellitus with hyperglycemia; E87.5 Hyperkalemia; I25.5 Ischemic cardiomyopathy; I25.10 Atherosclerotic heart disease of native coronary artery without angina pectoris; Z90.49 Acquired absence of other specified parts of digestive tract; Z95.5 Presence of coronary angioplasty implant and graft; Z87.891 Personal history of nicotine dependence; Z88.2 Allergy status to sulfonamides; Z84.89 Family history of other specified conditions; Z80.9 Family history of malignant neoplasm, unspecified; Z79.51 Long term (current) use of inhaled steroids; Z79.82 Long term (current) use of aspirin; Z79.4 Long term (current) use of insulin; Z79.899 Other long term (current) drug therapy; Y93.89 Activity, other specified; Y92.098 Other place in other non-institutional residence as the place of occurrence of the external cause; Y99.8 Other external cause status